=== PATIENT | female | born 1965 | race Hispanic/Latino ===

== ENCOUNTER → 2018-06-19 | Outpatient (CLI) | payer OTHER ==
--- NOTE | 2018-06-19 15:39 | Diagnostic Imaging Report ---
Exam: Left calcaneus radiographs - 2 views Clinical History: Left heel pain. Comparison: None. Findings: No evidence of acute fracture or malalignment. There is minimal Achilles enthesopathy. No evidence of plantar calcaneal spur. Impression: No acute radiographic abnormality. Minimal Achilles enthesopathy. Signed by: Dr. Yesenia Yost MD on 06/19/2018 3:36 PM
== END ==
LOC: RAD 14:58
PROVIDERS: ATTEND Family Medicine
DX: M79.672 Pain in left foot (principal); M89.8X7 Other specified disorders of bone, ankle and foot